=== PATIENT | female | born 1970 | race Caucasian/White ===

== ENCOUNTER 2022-04-14 08:03 | Emergency (ER) | payer BC, SELFPAY ==
--- NOTE | 2022-04-14 08:05 | ED.URI ---
HPI - URI/Sore Throat General Chief Complaint: Upper Respiratory Infection Stated Complaint: Sore Throat Time Seen by Provider: 04/14/22 08:04 Source: patient Mode of arrival: ambulatory Limitations: no limitations History of Present Illness HPI Narrative: Ms. Calhoun is a 51-year-old female patient presenting to the clinic today with complaints of a sore throat x2 days. She reports her throat began to be sore on Friday however yesterday it was worse and she was having pain with swallowing. Also reports some body aches but no known fever. No known exposure to anybody with COVID, flu, or strep. MD elicited complaint: sore throat and nasal congestion Related Data Home Medications Medication Instructions Recorded Confirmed liothyronine 25 mcg tablet 50 mcg PO DAILY 04/14/22 04/14/22 Allergies Allergy/AdvReac Type Severity Reaction Status Date / Time Sulfa (Sulfonamide Allergy Intermediate Hives Unverified 04/14/22 08:14 Antibiotics) Review of Systems Review of Systems: Pertinent positives per HPI. Patient denies any fever, chills, rash, headache, visual changes, dizziness, cough, shortness of breath, chest pain, palpitations, nausea, vomiting, diarrhea, constipation, abdominal pain, or any urinary issues. PMFSH Comments At the time of my signature, I reviewed and agree with the nursing past medical, surgical, social, and family history. There is no relevant family history pertinent to the patient complaint. Exam Narrative: General: Well-developed, well nourished, in no apparent distress Head: Normocephalic, atraumatic Eyes: Pupils equally round and reactive to light bilaterally, EOM intact, sclera and conjunctive clear, no discharge, lids normal Ears: TMs intact and clear, ear canals clear, no drainage, grossly hearing normal. Nose: Nares patent, no discharge, no inflammation, no sinus tenderness. Mouth: Oral pharynx without lesions or masses, good dentition, MMM. Oropharynx mildly red Neck: Supple, trachea midline, no enlargement of anterior or posterior cervical nodes, no thyroid masses or goiter palpable. Cardio: Regular rate and rhythm, s1 and s2 normal, no murmur appreciated. Resp: Clear to auscultation bilaterally, no rhonchi, rales, wheezing or rubs Course Course Emergency Course: Portions of this record may have been created with voice recognition software. Level of Care: Express Care Visit Vital Signs Vital signs: Vital signs reviewed MDM - URI/Sore Throat MDM Narrative Medical decision making narrative: At the time of visit patient is resting comfortably on the exam table. Strep screen was obtained and was negative in the clinic. We will send for culture. Supportive measures were discussed with the patient she voiced understanding of discharge instructions and agrees to the treatment plan. Differential Diagnosis Differential diagnosis: Likely upper respiratory infection, sinusitis, viral infection, influenza and pharyngitis Discharge Plan Discharge Clinical Impression: Pharyngitis Patient Disposition: Home, Self-Care Condition: Stable Instructions: Antibiotic Form, Pharyngitis (ED) Additional Instructions: May use viscous lidocaine to help alleviate pain as directed Strep screen was negative in the clinic. We will send for culture. Increase fluids and stay well hydrated Tylenol/motrin for pain/fever Flonase and OTC antihistamines as directed Vicks vapor rub to open sinuses Sinus rinses for congestion Cepacol spray, cough drops, throat lozenges, warm tea with honey/lemon, gargle salt water to soothe throat BRAT diet for diarrhea Clear liquids x 24 hours then advance as tolerated for nausea/vomiting May return to the clinic if symptoms worsen Go to the ED if you develop a worsening in your condition- high fever not controlled by Tylenol or Motrin, dehydration, weakness, lethargy, shortness of breath, or chest pain. Follow up with your PCP in 3-5
[2022-04-14 08:15] VITALS: BP 153/85; PULSE 104; RESP 16; TEMP 36.9; O2SAT 100
== END 2022-04-14 08:34 | disposition home or self-care (01) ==
LOC: EXPCOLL 08:09
PROVIDERS: Emergency Provider Nurse Practitioner Family
DX: J02.9 Acute pharyngitis, unspecified (principal); E03.9 Hypothyroidism, unspecified
CPT/HCPCS: 87081; 87880; 99213; G0463

== ENCOUNTER 2024-07-10 11:33 | Emergency (ER) | payer BC, SELFPAY ==
[2024-07-10 11:46] VITALS: BP 178/92; PULSE 123; RESP 16; TEMP 36.9; O2SAT 99
[2024-07-10 11:47] VITALS: BP 178/92; PULSE 123; RESP 16; TEMP 36.9; O2SAT 99
--- NOTE | 2024-07-10 11:50 | ED.SKABFB ---
HPI - Skin/Abscess/Foreign Bdy General Chief complaint: Skin/Abscess/Foreign Body Stated complaint: left hand,rash,swelling Time Seen by Provider: 07/10/24 11:50 Source: patient Mode of arrival: ambulatory Limitations: no limitations History of Present Illness HPI narrative: 54 yo F presents with pain, itching to L wrist. Scratched herself on grocer cart one wk ago. Has been applying neosporin. C/o itching. increased redness and looks bruised . All systems reviewed and negative except as noted above. Related Data Home Medications Medication Instructions Recorded Confirmed liothyronine 25 mcg tablet 50 mcg PO DAILY 04/14/22 07/10/24 metformin 500 mg tablet,extended 500 mg PO DAILY 07/10/24 07/10/24 release 24 hr Allergies Allergy/AdvReac Type Severity Reaction Status Date / Time Sulfa (Sulfonamide Allergy Intermediate Hives Verified 07/10/24 11:35 Antibiotics) Review of Systems Review of Systems: CONSTITUTIONAL: Denies fever, chills, or sweats. EYES: Denies visual changes, redness, or discharge. ENT: Denies rhinorrhea, congestion, sore throat, or otalgia. CARDIOVASCULAR: Denies chest pain, palpitations, or edema. RESPIRATORY: Denies cough or dyspnea. GASTROINTESTINAL: Denies abdominal pain, nausea, vomiting, or diarrhea. GENITOURINARY: Denies dysuria or hematuria. SKIN: Reports rash, itching, bruising to left wrist. MUSCULOSKELETAL: Denies back pain, joint pain, or myalgia. NEUROLOGIC: Denies headache, numbness, or weakness. PSYCHIATRIC: Denies anxiety or depression. All other systems reviewed are negative, except as documented in HPI. PMFSH Comments At time of signature, agree with nursing past medical, surgical, social and family history. There is no relevant family history pertinent to the presenting complaint. Exam Narrative: GENERAL: This is a well-nourished, well-developed patient, in no apparent distress. HEAD: normocephalic, atraumatic. EYES: PERRL. Sclera clear/white. Vision is grossly intact. EARS: External ears normal NOSE: External nose normal NECK: Neck supple, non-tender without lymphadenopathy, masses or thyromegaly. CARDIOVASCULAR: Regular rate and rhythm without murmurs, gallops, or rubs. RESPIRATORY: Clear to auscultation. Breath sounds equal bilaterally. No wheezes, rales, or rhonchi. SKIN: warm, Dry, intact with no suspicious lesions or rash, good texture and turgor. erythema and purplish color to posterior aspect L wrist approx. 5x5cm diameter with surround erythematous papules. mild swelling. no fluctuance. NEURO: awake, alert, and oriented to person, place and time. There were no obvious focal neurologic abnormalities. EXTREMITIES: No joint tenderness, effusion, or edema noted. Course Course Level of Care: Express Care Visit Vital Signs Vital signs: Vital Signs Temperature 36.9 C 07/10/24 11:46 Pulse Rate 123 H 07/10/24 11:46 Respiratory Rate 16 07/10/24 11:46 Blood Pressure 178/92 H 07/10/24 11:46 Pulse Oximetry 99 07/10/24 11:46 Oxygen Delivery Room Air 07/10/24 11:46 Temperature 36.9 C 07/10/24 11:47 Pulse Rate 123 H 07/10/24 11:47 Respiratory Rate 16 07/10/24 11:47 Blood Pressure 178/92 H 07/10/24 11:47 Pulse Oximetry 99 07/10/24 11:47 Oxygen Delivery Room Air 07/10/24 11:47 HR 100 auscultated MDM - Skin/Abscess/Foreign Bdy MDM Narrative Medical decision making narrative: Patient is aware of diagnosis, understands and agrees to treatment plan. Anticipatory guidance given. Patient agrees to follow-up as directed and is aware of reasons to seek care at the emergency department. Portions of this record may have been created with voice recognition software Differential Diagnosis Differential diagnosis: Likely abscess of skin or subcutaneous tissue, allergic reaction to drug, cellulitis and contact dermatitis Discharge Plan Discharge Clinical Impression: Cellulitis of left wrist, Contact dermatitis, El
[2024-07-10 12:11] VITALS: PULSE 100
== END 2024-07-10 12:11 | disposition home or self-care (01) ==
PROVIDERS: Emergency Provider Nurse Practitioner Family
DX: L03.114 Cellulitis of left upper limb (principal); L25.9 Unspecified contact dermatitis, unspecified cause; R03.0 Elevated blood-pressure reading, without diagnosis of hypertension; E11.9 Type 2 diabetes mellitus without complications; Z79.84 Long term (current) use of oral hypoglycemic drugs; E03.9 Hypothyroidism, unspecified
CPT/HCPCS: 99213; G0463